=== PATIENT | female | born 1980 | race African-American/Black ===

== ENCOUNTER 2017-02-24 09:36 | Emergency (ER) | payer OTHER ==
[~2017-02-24 09:36] MED LIST: FLEXERIL10 MG PO; IBUPROFEN800 MG PO; PEN-VEE K PO; PREDNISONE PO; VICODIN 5/500 T1 TAB PO
== END 2017-02-24 09:55 | disposition home or self-care (01) ==
LOC: CED 09:36
DX: K08.89 Other specified disorders of teeth and supporting structures (principal)
CPT/HCPCS: 99282